=== PATIENT | male | born 1995 | race Hispanic/Latino ===

== ENCOUNTER 2017-03-26 13:50 | Emergency (ER) | payer OTHER ==
[~2017-03-26] VITALS: Ht 152.4 cm; Wt 63.0 kg
[2017-03-26 13:54] VITALS: BP 154/101; PULSE 78; RESP 20; O2SAT 99
--- NOTE | 2017-03-26 14:12 | ED.REPORT ---
HPI-Extremity Problem Upper Date of Service March 26, 2017 ED Provider: Kal Vasquez MD The patient is a 21 year old male who presents to the ED accompanied by his friend due to left index finger pain after accidentally drilling a screw into his hand at work water [employer]. He is awake and alert at the ED. Nursing Notes Stated Complaint: FINGER LACERATION Chief Complaint: Extremity Trauma Nursing Notes Reviewed: Yes Allergies: Coded Allergies: No Known Allergies (Unverified , 03/26/17) Scheduled Cephalexin (Keflex) 500 Mg Capsule 500 MG PO QID Scheduled PRN Ibuprofen (Ibuprofen) 800 Mg Tablet 800 MG PO TID PRN PRN For Pain General Time Seen by MD: 14:06 Chief Complaint Finger injury left 1 Hx Obtained From: Patient Arrived By: Walk-in Onset Occurred: Just prior to arrival Symptom Duration: Since onset Caused by: Accidental Location: : Finger left 1 Quality: Painful Severity: Current: Mild Associated with: Reports: Bleeding, Joint swelling Exacerbated by: Range of motion, Bending, Movement Recent Healthcare: No recent doctor visit, No recent hospitalization Similar Sx Previous: No Past Medical History Past Medical History healthy Past Surgical History denies Smoking History Unknown if Ever Smoker Social History Other Social History: Good social support, Local resident Ambulatory Status Independent Review of Systems Musculoskeletal: Reports: Joint pain (left index finger pain) Skin: Reports Bruising, Reports Swelling Complete sys rev & neg: except as marked. Hematologic: Reports Bleeding, Reports Bruising Physical Exam Initial Vital Signs Vital Signs (First) Date Time Temp Pulse Resp B/P Pulse Ox O2 Delivery O2 Flow Rate FiO2 03/26/17 13:54 36.2 78 20 154/101 99 Room Air Initial VS: Reviewed General/Constitutional: Well-developed, Well-nourished Head / Eyes: Atraumatic, Normocephalic, PERRL ENT: Mucous membranes moist, Conjunctiva normal, No scleral icterus Neck: Supple, Non-tender, Full range of motion Respiratory: Breath sounds normal, Clear to auscultation, No respiratory distress Cardiovascular: Regular rate & rhythm, Heart sounds normal, Intact distal pulses Abdomen / GI: Soft, Non-tender, No guarding, No rebound, No distention Back: No CVA tenderness Lower Extremities: Vascular intact, Neuro intact, No swelling, No tenderness Upper Extremity / MS: Full range of motion, Neurologic intact, Vascular intact Finger Exam : Finger Exam: Positive: Finger name... (L index) left index finger radial aspect distally with a 1mm laceration minimal active bleeding no observed foreign bodies Interpretation & Diagnostics X-Ray Interpretation Xray Interpretation: LEFT FINGER X-RAY IMPRESSION: Soft tissue radiodensities as above suggestive of foreign bodies. No visualized fracture. Dictated by: Milagros Santoyo M.D. on 03/26/2017 at 15:07 Approved by: Milagros Santoyo M.D. on 03/26/2017 at 15:08 X-Ray Ordered: Hand left Interpretation / Wet Read by: Interpret - Radiologist Re-Eval/Medical Decision Med Decision/Clinical Course 21-year-old male with drill into left index finger at work. There is a very small 1 mm laceration with minimal active bleeding left index finger. He was neurovascularly intact. X-ray no fracture. There are is small foreign bodies on x-ray which are not visualized on exam. Discussed with patient and he does not want surgical exploration. Given they not immediately visualized, I discussed the patient and he agrees with plan to follow up with primary doctor in several days with no surgical removal at this time.. He did receive tetanus here. He also received 1 g of Ancef and a prescription for 3 days of Keflex. He will follow up with primary doctor in 2-3 days for wound check. Counseled Regarding: Diagnosis, Lab results, Need for follow-up, When/why to return to ED Discharge & Departure Impression: Primary Impression: Injury of left index finger Encounter type: initial encounter Qualified Code: S69.92XA - Unspecified injury of left wrist, hand and finger(s), initial encounter Disposition: Home Discharge Condition All VS Reviewed: Yes Condition: Stable Additional Instructions: Thank you for entrusting us with your care today. Your x-ray does not show any fracture. Follow up with your primary care physician in the next week. Return to the Emergency Department for any new or worsening symptoms including increased pain, redness, swelling, warmth, discharge, and fever. I hope you feel better soon, enjoy the sunshine! Referrals: [facility] Scribe Attestation Portion of this note were transcribed by Tova Perez. I, Dr. Vasquez, personally performed the history, physical exam, and medical decision-making: I reviewed and confirmed the accuracy for the information in the transcribed note. Signed by: deya Thomas, 03/26/17 1600 copies to: [facility] Kal Vasquez MD March 26, 2017 14:12 Tova Perez March 26, 2017 15:05
[2017-03-26] MEDS ORDERED: CeFAZolin 1,000 mg Inj IM ONE (15:05)
[2017-03-26] MEDS ORDERED: TdaP Vaccine 0.5 mL Inj IM ONE (15:05)
--- NOTE | 2017-03-26 15:09 | DRSVH ---
PROCEDURE: X-RAY FINGERS, TWO VIEWS INDICATIONS: Left index finger laceration TECHNIQUE: AP hand, 2 views of the 3 finger(s) acquired. COMPARISON: None. FINDINGS: Bones: No fractures or dislocations. No suspicious bony lesions. Soft tissues: No suspicious soft tissue calcifications. There are three areas of linear increased r adiodensity overlying the soft tissues adjacent to the distal phalanx of the second digit. No adjacen t osseous fractures identified. IMPRESSION: Soft tissue radiodensities as above suggestive of foreign bodies. No visualized fracture. Dictated by: Milagros Santoyo M.D. on 03/26/2017 at 15:07 Approved by: Milagros Santoyo M.D. on 03/26/2017 at 15:08
[2017-03-26] MEDS ORDERED: IBUP800T28 PO (15:27)
[2017-03-26] MEDS ORDERED: CEPH-512 PO (15:28)
== END 2017-03-26 16:17 | disposition home or self-care (01) ==
LOC: SED 13:50
DX: S61.231A Puncture wound without foreign body of left index finger without damage to nail, initial encounter (principal); W31.1XXA Contact with metalworking machines, initial encounter; Y92.59 Other trade areas as the place of occurrence of the external cause; Y93.89 Activity, other specified; Y99.0 Civilian activity done for income or pay; Z23 Encounter for immunization
CPT/HCPCS: 73140; 90471; 90715; 96372; 99284; J0690